=== PATIENT | male | born 1955 | race Caucasian/White ===

== ENCOUNTER → 2019-11-28 | Outpatient (CLI) | payer OTHER ==
[~2019-11-28] MED LIST: CLEOCIN HCL300 MG PO; NOHOMEMEDICATIONS; OXYCODONE-APAP1 EAC4 PO
== END | disposition home or self-care (01) ==
LOC: GI 11-27 10:58
PROVIDERS: ATTEND Specialist
DX: Z01.812 Encounter for preprocedural laboratory examination (principal); Z11.59 Encounter for screening for other viral diseases; R10.9 Unspecified abdominal pain; Z88.8 Allergy status to other drugs, medicaments and biological substances

== ENCOUNTER → 2019-12-22 | Outpatient (CLI) | payer OTHER ==
[~2019-12-22] MED LIST changes: +COLLAGEN PLUS1 EACH PO; +VITAMIN D3125 MC3 SUBLING
== END ==
LOC: LAB 11:35
PROVIDERS: ATTEND Student in an Organized Health Care Education/Training Program
DX: Z01.812 Encounter for preprocedural laboratory examination (principal); Z11.59 Encounter for screening for other viral diseases

== ENCOUNTER → 2019-12-25 | Outpatient (CLI) | payer OTHER ==
[~2019-12-25] VITALS: Ht 167.6 cm; Wt 61.2 kg
--- NOTE | 2019-12-25 13:46 | P ---
[facility] [place] [address] PROCEDURE REPORT Name: ALVINO GOODE Room #: REG PASCUAL Elvis#: [id number] Admission: 12/25/19 Attend Phys: Orville Shukla MD Discharge: Date of : 57 Report #: [id number] THIS REPORT FOR: cc: Nitish Crouch MD,Nitish Shukla,Orville Kim MD ~ CC: NITISH Shukla DATE OF SERVICE: 12/25/2019 OUTPATIENT COLONOSCOPY REPORT BRIEF HISTORY: The patient is a 64-year-old male with family history of colon cancer. His mother had colon cancer when she was in her mid 50s. PREOPERATIVE DIAGNOSIS: Family history of colon cancer in mother in mid 50s. POSTOPERATIVE DIAGNOSES: 1. Colon polyps. 2. Moderate sigmoid diverticulosis coli. 3. Small internal hemorrhoids. MEDICATIONS: Deep sedation with propofol per anesthesia. SPECIMENS: 1. Polyp from mid transverse colon. 2. Polyps x 2, hepatic flexure. ESTIMATED BLOOD LOSS: 3 mL. PROCEDURE: Colonoscopy to cecum and terminal ileum with saline-assisted snare polypectomy and biopsy. FINDINGS: Prior to propofol sedation, procedure of colonoscopy discussed with the patient as well as potential risks and its complications. He indicates he understands and desires to proceed. DESCRIPTION OF PROCEDURE: With the patient in left lateral decubitus position, digital examination was completed, which revealed no abnormalities. Subsequently, the Olympus video colonoscope was introduced into the rectum, advanced under direct vision to the cecum. Done with minimal difficulty. The cecum was identified by the ileocecal valve and the appendiceal orifice. I was able to visualize the distal segment of the terminal ileum, which was inspected and noted to be unremarkable. At that point, the scope was slowly withdrawn and [facility] [address] [place] [address] PROCEDURE REPORT Name: ALVINO GOODE Alicia Room #: REG PASCUAL Martino#: [id number] Admission: 12/25/19 Attend Phys: Orville Shukla MD Discharge: Date of : 57 Report #: [id number] careful circumferential views were obtained including retroflexing the scope in the ascending colon. I also might point out that the patient has a prior history of distal small-bowel obstruction. The CT in 2015 revealed a site of obstruction just proximal to the ileocecal valve. I was able to advance the scope about 15 cm in the distal ileum and no mucosal abnormalities were seen, no strictures or masses were seen. At that point, the scope was slowly withdrawn and careful circumferential views were obtained. Upon slow withdrawal of the scope, the prep was excellent. The mucosa was within normal limits, normal vascular pattern, normal light reflex. As we withdrew the scope, he was found to have 2 diminutive polyps at the level of the hepatic flexure, which were removed with cold biopsy forceps. The scope was further withdrawn, and in the mid transverse colon, he was found to have a flat polyp that was about 6 x 12 mm in greatest dimension. The polyp was elevated with saline and removed by hot snare polypectomy. There appeared to be a couple tissue fragments on the margins of the polypectomy and these removed with jumbo biopsy forceps. The scope was further withdrawn and no additional neoplastic lesions were seen on the remainder of the exam. However, in the sigmoid colon, there was noted to be moderate diverticular disease without endoscopic evidence of diverticulitis. The scope was further withdrawn and no additional abnormalities were seen. Scope was withdrawn in the rectum. No abnormalities were seen. Upon retroflexion, small hemorrhoids were seen. Scope was withdrawn. The patient tolerated the procedure well. CONDITION OF THE PATIENT UPON DISCHARGE: Following procedure, the patient was drowsy, arousable and conversant and will be discharged home when fully ambulatory. INSTRUCTIONS TO THE PATIENT AND FAMILY AT THE TIME OF DISCHARGE: Three polyps identified and removed as described above. The flat adenoma is likely an advanced adenoma. It has a benign appearance. We will follow up on the pathology, but due to his history and a finding of what appears to be an advanced adenoma, we will have her return in 3 years for a high risk screening colonoscopy. He will otherwise return to the care of Dr. Demetrius Crouch and return to see me as needed Last colonoscopy was 2008. Withdrawal time from the cecum was between 13 and 14 minutes. <ELECTRONICALLY SIGNED> By: Orville Shukla MD 12/25/19 1346 [id number] Orville Shukla MD /nt
--- NOTE | 2019-12-26 17:06 | PATH ---
[facility] [place] [address] PATHOLOGY RPT PROCEDURE Name: ALVINO GOODE Room #: REG PASCUAL Martino#: [id number] Admission: 12/25/19 Date of : 57 Discharge: Report #: [id number] Path Case #: [id number] Accession Number: [id number] . 01 Material submitted: . PART A: colon - POLYP AT MID-TRANSVERSE COLON. Modifiers: mid, transverse PART B: hepatic flexure - POLYP AT HEPATIC FLEXURE X2 . 01 Clinical history: . Screening for colon cancer . 02 Diagnosis: A. Polyp, at mid transverse colon, endoscopic biopsy: - Tubular adenoma. - Negative for high grade dysplasia. . B. Polyp x2, hepatic flexure, endoscopic biopsy: - Both fragments showing tubular adenoma. - Negative for high grade dysplasia. . (IUV:mml; 12/26/2019) QLM 12/26/2019 1227 Local . 02 Electronically signed: . Bianca Reyes MD, Pathologist NPI- [id number] . 01 Gross description: . A. The specimen is received in formalin, labeled "Alvino Mcewen, polyp at mid transverse colon". Received are five segments of pale hook soft tissue ranging in size from 0.3 to 0.5 cm in maximum dimensions. The specimen is submitted entirely in cassette A1. . B. The specimen is received in formalin, labeled "Alvino Mallory, polyp at hepatic flexure x2". Received are two segments of pale hook soft tissue measuring 0.4 cm each in maximum dimensions. The specimen is submitted entirely in cassette B1. (CAA; 12/25/2019) QAC/QAC 12/25/2019 1635 Local . 02 Pathologist provided ICD-10: D12.3, Z12.11 . 02 CPT . 926360, 020395 Specimen Comment: A courtesy copy of this report has been sent to [phone] Specimen Comment: Report sent to [address] [address] PATHOLOGY RPT PROCEDURE Name: ALVINO GOODE Room #: REG PASCUAL Martino#: [id number] Admission: 12/25/19 Date of : 57 Discharge: Report #: [id number] Path Case #: [id number] Performed at: 01 [facility] Chaya Amaya [address] [place] [address] [address], [place], [place] [id number] MD Kevin Arechiga MD Phone: [phone] Performed at: [address] [id number] MD Bianca Reyes MD Phone: [phone]
== END ==
LOC: GI 07:09
PROVIDERS: ATTEND Specialist
DX: Z12.11 Encounter for screening for malignant neoplasm of colon (principal); Z80.0 Family history of malignant neoplasm of digestive organs; D12.3 Benign neoplasm of transverse colon; K57.30 Diverticulosis of large intestine without perforation or abscess without bleeding; K64.8 Other hemorrhoids; Z98.890 Other specified postprocedural states
CPT/HCPCS: 62110; 62900